=== PATIENT | male | born 1945 | race Caucasian/White ===

== ENCOUNTER 2019-12-07 03:04 | Emergency (ER) | payer MEDICARE, MEDICAID ==
[~2019-12-07] VITALS: Ht 180.3 cm; Wt 77.0 kg
[2019-12-07] MEDS ORDERED: piperacillin/tazo 3.375gm/50ml 50 ML IV ONE (04:30)
[2019-12-07] MEDS ORDERED: AMOX-422 PO (04:43)
[2019-12-07] MEDS ORDERED: TETanus/Pertussis (Acell)/Diphther VAC/PF (Tdap-Adult) 0.5ml syringe IMVAC ONE (04:45)
[2019-12-07 05:12] VITALS: BP 127/59
== END 2019-12-07 05:15 | disposition home or self-care (01) ==
LOC: ER 03:05
DX: S91.332A Puncture wound without foreign body, left foot, initial encounter (principal); L03.116 Cellulitis of left lower limb; F12.90 Cannabis use, unspecified, uncomplicated; Z72.89 Other problems related to lifestyle; Z79.899 Other long term (current) drug therapy; W55.01XA Bitten by cat, initial encounter; Y93.89 Activity, other specified; Y92.89 Other specified places as the place of occurrence of the external cause; Y99.8 Other external cause status
CPT/HCPCS: 90471; 90715; 96365; 99284; J2543